=== PATIENT | female | born 1955 | race Caucasian/White ===

== ENCOUNTER 2020-03-13 18:50 | Emergency (ER) | payer MEDICARE ==
--- NOTE | 2020-03-13 19:29 | CR ---
Chest: Portable view of the chest was obtained. Comparison: No prior chest imaging. Heart is slightly enlarged but felt to be accentuated from portable technique. Tortuous thoracic aorta is seen. Lungs are clear with no acute parenchymal change. Bony structures are grossly intact. Impression: 1. Nothing acute is appreciated on portable chest x-ray. Diagnostic code #1 This report was dictated in MDT
--- NOTE | 2020-03-13 21:23 | EDM.PDOC ---
ED HPI GENERAL MEDICAL PROBLEM - General Chief Complaint: Chest Pain Stated Complaint: SOB CHEST PAIN Time Seen by Provider: 03/13/20 18:55 Source of Information: Reports: Patient History Limitations: Reports: No Limitations - History of Present Illness INITIAL COMMENTS - FREE TEXT/NARRATIVE: PENNY NOTE -- Pt presents for c/o chest pain and shortness of breath starting 30 minutes prior to presentation. Pt reports that initial pain was 8-9/10. Pain at this time is a 2-3/10. [ End ] The patient says she had an onset of low back pain when she was sitting quietly. She said the pain more or less migrated to her chest area. She says that with shortness of breath but it seemed to be related to musculoskeletal pain in her chest. She described the pain is having a "cramping" quality. There is no sweating. In fact she said the sensation was resolved when she stood up. Apparently there was no interference with activity due to this symptom. She has not taken any medication prior to arrival or any other measure in an effort to moderate symptoms. In fact her pain if present is always pretty mild on presentation. At the time of my exam she has no pain and feels quite comfortable. Risk factors include hypertension. Patient says in 2012 she had a hypertensive emergency with acute renal failure. She says she was thought to have had a stroke at that time but she does not recall any weakness or any other symptoms that may suggest she actually had a stroke. About 3 years ago she was admitted to [facility] overnight after coming in with a presentation similar to her presentation today. Left Chest Pain Score (Numeric/FACES): 2 - Related Data Allergies Allergy/AdvReac Type Severity Reaction Status Date / Time No Known Allergies Allergy Verified 03/13/20 19:02 Home Meds: Home Meds Acetaminophen 325 mg PO Q6H PRN 03/13/20 [History] Aspirin [Ecotrin EC] 81 mg PO DAILY 03/13/20 [History] Docusate Sodium/Sennosides [Senna Plus] 1 each PO DAILY PRN 03/13/20 [History] Furosemide 20 mg PO DAILY 03/13/20 [History] Gabapentin [Neurontin] 300 mg PO BEDTIME 03/13/20 [History] Labetalol [Normodyne] 600 mg PO BID 03/13/20 [History] Magnesium Chloride 128 mg PO DAILY 03/13/20 [History] Potassium Chloride 20 meq PO DAILY 03/13/20 [History] Sertraline HCl 50 mg PO DAILY 03/13/20 [History] Tacrolimus 0.5 mg PO ACBREAKFAST 03/13/20 [History] Tacrolimus 1 mg PO BEDTIME 03/13/20 [History] amLODIPine Besylate [Amlodipine Besylate] 10 mg PO BEDTIME 03/13/20 [History] atorvaSTATin Calcium [Atorvastatin Calcium] 20 mg PO BEDTIME 03/13/20 [History] diphenhydrAMINE [Benadryl] 25 mg PO BEDTIME PRN 03/13/20 [History] mycophenolate mofetiL [Mycophenolate Mofetil] 1,000 mg PO BID 03/13/20 [History] predniSONE [Prednisone] 5 mg PO DAILY 03/13/20 [History] Past Medical History HEENT History: Reports: Impaired Vision Cardiovascular History: Reports: Hypertension Genitourinary History: Reports: Other (See Below) Other Genitourinary History: Kidney transplant 2014 Neurological History: Reports: CVA, Other (See Below) Other Neuro History: Thrombosis of legs Social & Family History - Family History Family Medical History: Noncontributory - Tobacco Use Smoking Status *Q: Former Smoker (Quit in 1993) Used Tobacco, but Quit: Yes Month/Year Tobacco Last Used: 02/1995 - Caffeine Use Caffeine Use: Reports: Tea - Recreational Drug Use Recreational Drug Use: No ED ROS GENERAL - Review of Systems Review Of Systems: Comprehensive ROS is negative, except as noted in HPI. ED EXAM, GENERAL - Physical Exam Exam: See Below Exam Limited By: No Limitations General Appearance: Alert, WD/WN, No Apparent Distress Eye Exam: Bilateral Eye: EOMI, PERRL Ears: Normal External Exam Nose: Normal Inspection Throat/Mouth: Normal Inspection, Normal Lips, Normal Voice Head: Atraumatic, Normocephalic Neck: Normal Inspection, Supple Respiratory/Chest: No Respiratory Distress, Lungs Clear, Normal Breath Sounds Cardiovascular: Regular Rate, Rhythm GI/Abdominal: Soft, Non-Tender Back Exam: Normal Inspection. No: CVA Tenderness (L), CVA Tenderness (R) Extremities: Normal Inspection, Non-Tender, No Pedal Edema Neurological: Alert, Oriented, Normal Cognition, No Motor/Sensory Deficits Psychiatric: Normal Affect, Normal Mood Skin Exam: Warm, Dry Course - Vital Signs Last Recorded V/S: Last Vital Signs Temp 36.1 C 03/13/20 18:57 Pulse 69 03/13/20 18:57 Resp 22 H 03/13/20 18:57 BP 175/95 H 03/13/20 18:57 Pulse Ox 95 03/13/20 18:57 - Orders/Labs/Meds Orders: Active Orders 24 hr Category Date Time Status EKG 12 Lead [EKG Documentation Completion] [RC] ROUTINE Care 03/13/20 22:30 Active EKG Documentation Completion [RC] STAT Care 03/13/20 19:04 Active UA RFX ARIAN AND CULT IF INDIC [URIN] Stat Lab 03/13/20 19:04 Ordered Labs: Laboratory Tests 03/13/20 03/13/20 03/13/20 Range/Units 19:25 19:25 19:25 WBC 10.53 H (3.98-10.04) K/mm3 RBC 5.00 (3.98-5.22) M/mm3 Hgb 13.0 (11.2-15.7) gm/dl Hct 42.3 (34.1-44.9) % MCV 84.6 (79.4-94.8) fl MCH 26.0 (25.6-32.2) pg MCHC 30.7 L (32.2-35.5) g/dl RDW Std Deviation 44.0 (36.4-46.3) fL Plt Count 231 (182-369) K/mm3 MPV 10.6 (9.4-12.3) fl Neutrophils % (Manual) 92 H (40-60) % Band Neutrophils % 0 (0-10) % Lymphocytes % (Manual) 6 L (20-40) % Atypical Lymphs % 0 % Monocytes % (Manual) 2 (2-10) % Eosinophils % (Manual) 0 L (0.7-5.8) % Basophils % (Manual) 0 L (0.1-1.2) Platelet Estimate Adequate RBC Morph Comment Normal PT 11.0 (9.7-12.0) SECONDS INR 1.01 APTT 21 L (22-31) SECONDS Sodium 142 (136-145) mEq/L Potassium 4.2 (3.5-5.1) mEq/L Chloride 106 (98-107) mEq/L Carbon Dioxide 21 (21-32) mEq/L Anion Gap 19.2 H (5-15) BUN 16 (7-18) mg/dL Creatinine 1.2 H (0.55-1.02) mg/dL Est Cr Clr Drug Dosing 37.95 mL/min Estimated GFR (MDRD) 45 (>60) mL/min BUN/Creatinine Ratio 13.3 L (14-18) Glucose 122 H (80-115) mg/dL Calcium 9.0 (8.5-10.1) mg/dL Total Bilirubin 0.5 (0.2-1.0) mg/dL AST 9 L (15-37) U/L ALT 14 (14-59) U/L Alkaline Phosphatase 75 (46-116) U/L Troponin I < 0.017 (0.00-0.056) ng/mL Total Protein 7.0 (6.4-8.2) g/dl Albumin 4.3 (3.4-5.0) g/dl Globulin 2.7 gm/dL Albumin/Globulin Ratio 1.6 (1-2) 03/13/20 Range/Units 22:15 WBC (3.98-10.04) K/mm3 RBC (3.98-5.22) M/mm3 Hgb (11.2-15.7) gm/dl Hct (34.1-44.9) % MCV (79.4-94.8) fl MCH (25.6-32.2) pg MCHC (32.2-35.5) g/dl RDW Std Deviation (36.4-46.3) fL Plt Count (182-369) K/mm3 MPV (9.4-12.3) fl Neutrophils % (Manual) (40-60) % Band Neutrophils % (0-10) % Lymphocytes % (Manual) (20-40) % Atypical Lymphs % % Monocytes % (Manual) (2-10) % Eosinophils % (Manual) (0.7-5.8) % Basophils % (Manual) (0.1-1.2) Platelet Estimate RBC Morph Comment PT (9.7-12.0) SECONDS INR APTT (22-31) SECONDS Sodium (136-145) mEq/L Potassium (3.5-5.1) mEq/L Chloride (98-107) mEq/L Carbon Dioxide (21-32) mEq/L Anion Gap (5-15) BUN (7-18) mg/dL Creatinine (0.55-1.02) mg/dL Est Cr Clr Drug Dosing mL/min Estimated GFR (MDRD) (>60) mL/min BUN/Creatinine Ratio (14-18) Glucose (80-115) mg/dL Calcium (8.5-10.1) mg/dL Total Bilirubin (0.2-1.0) mg/dL AST (15-37) U/L ALT (14-59) U/L Alkaline Phosphatase (46-116) U/L Troponin I < 0.017 (0.00-0.056) ng/mL Total Protein (6.4-8.2) g/dl Albumin (3.4-5.0) g/dl Globulin gm/dL Albumin/Globulin Ratio (1-2) - Re-Assessments/Exams Free Text/Narrative Re-Assessment/Exam: 03/13/20 23:07 On the basis of the history presentation and findings it would appear that the patient does not have an acute cardiological issue at this time. She was held for 3 hours for repeat troponin and EKG. EKG does show some nonspecific T wave changes but compared with a tracing done at [facility] in 2016 there is no significant difference. Troponin was low and equivalent to times checked. Chest x-ray negative. Discussed fully with patient and family member at bedside. See instructions below. Departure - Departure Time of Disposition: 23:08 Disposition: Home, Self-Care 01 Condition: Good Clinical Impression: Atypical chest pain - Discharge Information *PRESCRIPTION DRUG MONITORING PROGRAM REVIEWED*: Not Applicable *COPY OF PRESCRIPTION DRUG MONITORING REPORT IN PATIENT SHASHI: Not Applicable Referrals: PCP,None [Primary Care Provider] - Forms: ED Department Discharge Additional Instructions: You have been seen for an episode that could possibly represent a problem with your heart. You have been evaluated fully and there appears to be no acute problem at this time. The sensitive cardiac enzyme troponin was repeated after 3 hours and both times this value was not at all suggestive of damage to the heart. EKG is comparable to one done in 2016 and was done twice here without any change. Tomorrow morning please call your specialist who is been taking care of you. If there is any subsequent issue including chest pain especially associated with shortness of breath sweating or inability to remain active, passing out or almost passing out, return to ER immediately and do not hesitate to call EMS for that. Sepsis Event Note (ED) - Evaluation Sepsis Screening Result: No Definite Risk - Focused Exam Vital Signs: Vital Signs Temp Pulse Resp BP Pulse Ox 03/13/20 18:57 36.1 C 69 22 H 175/95 H 95 - My Orders Last 24 Hours: My Active Orders 03/13/20 19:04 EKG Documentation Completion [RC] STAT UA RFX ARIAN AND CULT IF INDIC [URIN] Stat 03/13/20 22:30 EKG 12 Lead [EKG Documentation Completion] [RC] ROUTINE - Assessment/Plan Last 24 Hours: My Active Orders 03/13/20 19:04 EKG Documentation Completion [RC] STAT UA RFX ARIAN AND CULT IF INDIC [URIN] Stat 03/13/20 22:30 EKG 12 Lead [EKG Documentation Completion] [RC] ROUTINE
== END 2020-03-13 23:21 | disposition home or self-care (01) ==
LOC: JD.ED 18:50
DX: R07.89 Other chest pain (principal); I10 Essential (primary) hypertension; Z86.73 Personal history of transient ischemic attack (TIA), and cerebral infarction without residual deficits; Z79.82 Long term (current) use of aspirin; Z79.899 Other long term (current) drug therapy; Z87.891 Personal history of nicotine dependence
CPT/HCPCS: 36415; 71045; 71045-26; 80053; 84484; 85007; 85027; 85610; 85730; 93005; 93010; 99284; 99285-25

== ENCOUNTER 2020-11-08 17:25 | Emergency (ER) | payer OTHER, MEDICAID ==
--- NOTE | 2020-11-08 17:33 | EDM.PDOC ---
ED HPI GENERAL MEDICAL PROBLEM - General Chief Complaint: Cardiovascular Problem Stated Complaint: [facility] Time Seen by Provider: 11/08/20 17:33 Source of Information: Reports: Patient History Limitations: Reports: No Limitations - History of Present Illness INITIAL COMMENTS - FREE TEXT/NARRATIVE: 65-year-old female who is a resident of I believe [facility]. She returned to the ED at the request of her primary care physician as she had labs drawn after dialysis run this afternoon. She has been back to the long-term for about 45 minutes to an hour. Labs returned indicating a potassium of 1.0 or less. This is highly unlikely as this is usually incompatible with life. Her potassium before dialysis was apparently around 6.5. Patient does not verbalize much at all. She denies any complaints other than being fatigued which she usually is after dialysis. Patient has a history of a hypertensive emergency in 2012 with acute renal failure as a result of this. She was on dialysis until she received a kidney transplant in 2014 but subsequently rejected this organ. This is the reason that she is on dialysis once again for the last 2 years. She says she was thought to have had a stroke at that time but she does not recall any weakness or any other symptoms that suggested an actual stroke or deficit neurologically. Admitted to [facility] approximately 3-1/2 years ago to chest pain and a cardiac rule out. She believes that she has been on dialysis for about 7 years. I suspect the patient probably did have a stroke as she is currently getting all of her medications through the G-tube. She is therefore restrictions on ability to swallow. Patient is a type II diabetic controlled with insulin. Levemir 12 units once d aily and Humalog insulin on a as needed basis per sliding scale. Onset: Today Onset Date: 11/08/20 Onset Time: 17:00 (Labs drawn after dialysis run today and reported out after the patient had been discharged back to the long-term suggested her potassium was lower than 1.0. He thus returns to the ED for further evaluation in this regard or recheck on potassium level) Duration: Hour(s): Location: Reports: Other (Reportedly had a serum potassium level of only 1.0 which was drawn after her dialysis run of 4 hours this afternoon. She had already returned back to [facility] and thus was brought back to the ER for eval further evaluation and confirmation that she was not suffering severe hypokalemia.) Quality: Reports: Other (Turn for hypokalemia post dialysis run.) Severity: Severe (Portably severe hypokalemia at less than 1.0.) Improves with: Reports: Other (Avalos is alert and answers some questions. She appears very fatigued at this time.) Context: Reports: Other (Patient is fatigued and tired and). Denies: Activity, Exercise, Lifting, Sick Contact, Trauma Associated Symptoms: Reports: Loss of Appetite, Malaise, Weakness. Denies: Chest Pain ( answers a few questions but then falls back asleep.), Cough, cough w sputum, Diaphoresis, Fever/Chills, Headaches, Nausea/Vomiting, Rash, Seizure, Shortness of Breath, Syncope Treatments PROPOSAL REVIEW ANALYST: Reports: Other (see below) (Only her current medications.) - Related Data Allergies Allergy/AdvReac Type Severity Reaction Status Date / Time citric acid Allergy Cannot Verified 11/08/20 17:41 Remember Home Meds: Home Meds Acetaminophen 17.5 ml GTUBE BID 11/08/20 [History] Amiodarone [Cordarone] 200 mg GTUBE BID 11/08/20 [History] B Complex W-C No.20/Folic Acid [Mynephrocaps Softgel] 1 mg GTUBE DAILY 11/08/20 [History] FLUoxetine [PROzac] 10 mg GTUBE DAILY 11/08/20 [History] Insulin Aspart [NovoLOG] 1 injection SUBCUT QID 11/08/20 [History] Insulin Detemir [Levemir Flextouch] 12 units SUBCUT DAILY 11/08/20 [History] LORazepam [Ativan] 0.5 mg GTUBE BID 11/08/20 [History] Lactose-Reduced Food/Fiber [Isosource 1.5 Wojciech Tube Feed] 55 ml GTUBE ASDIRECTED 11/08/20 [History] Loperamide HCl [Imodium A-D] 1 mg GTUBE BID 11/08/20 [History] Losartan [Cozaar] 50 mg GTUBE QPM 11/08/20 [History] Pantoprazole Sodium [Protonix] 40 mg GTUBE DAILY 11/08/20 [History] Thiamine [Vitamin B-1] 100 mg GTUBE DAILY 11/08/20 [History] atorvaSTATin [Lipitor] 10 mg GTUBE DAILY 11/08/20 [History] dimenhyDRINATE [Dramamine] 50 mg GTUBE Q4HR PRN 11/08/20 [History] levETIRAcetam [Keppra] 1,000 mg GTUBE DAILY 11/08/20 [History] levETIRAcetam [Keppra] 500 mg GTUBE MOWEFR 11/08/20 [History] risperiDONE [Risperdal] 0.5 mg GTUBE QPM 11/08/20 [History] Past Medical History HEENT History: Reports: Impaired Vision Cardiovascular History: Reports: Hypertension Genitourinary History: Reports: Other (See Below) Other Genitourinary History: 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 Apparently severe renal failure occurred after an acute hypertensive event in 2012. Kidneys have failed and she is subsequently back on hemodialysis for the last 2 years. Neurological History: Reports: CVA, Seizure (She is on Keppra 1500 mg/day.), Other (See Below) (Mild dementia. Using risperidone at bedtime to help sleep) Other Neuro History: Thrombosis of legs Endocrine/Metabolic History: Reports: Diabetes, Type II (Takes insulin for her diabetes control. Currently on Levemir 12 units subcu daily and 1 to 2 units of regular insulin with meals depending on carb intake.) Social & Family History - Family History Family Medical History: No Pertinent Family History - Caffeine Use Caffeine Use: Reports: Tea - Living Situation & Occupation Living situation: Reports: , Extended Care Facility (Currently a resident resident of [facility].) Occupation: Disabled ED ROS GENERAL - Review of Systems Review Of Systems: See Below Constitutional: Reports: Malaise, Weakness, Fatigue, Decreased Appetite. Denies: Fever, Chills HEENT: Reports: No Symptoms Respiratory: Reports: Shortness of Breath, Cough. Denies: Wheezing, Pleuritic Chest Pain (Occasionally.) Cardiovascular: Reports: Blood Pressure Problem, Dyspnea on Exertion (On occasion.), Edema (Lower extremities), Lightheadedness. Denies: Chest Pain (Unproductive), Claudication (Severe hypertensive problems.), Orthopnea Endocrine: Reports: Fatigue GI/Abdominal: Reports: Constipation, Nausea, Other (Patient is fed via G-tube. All of her medications are administered through G-tube as well.). Denies: Vomiting (Violetta had nausea often associate with dialysis run.) : Reports: Other (Does not make any urine anymore. Patient is a hemodialysis patient for the last 2 years. Dialysis usually Wednesday and Wednesday.) Musculoskeletal: Reports: Back Pain, Joint Pain (Knees hips neck at times.) Skin: Reports: No Symptoms Neurological: Reports: Confusion (Reported transient confusion), Dizziness, Seizure (Known seizure disorder. Is on Keppra 1500 mg daily.) Psychiatric: Reports: Agitation, Anxiety, Other Hematologic/Lymphatic: Reports: No Symptoms (Apparently showing early signs of dementia.) Immunologic: Reports: No Symptoms ED EXAM, GENERAL - Physical Exam Exam: See Below Exam Limited By: No Limitations General Appearance: Alert, WD/WN, No Apparent Distress, Other (Patient appears very sleepy. She will answer a few Questions and then falls back asleep. Temperature was 36.4. Heart rate 81 and sinus. Respiratory is 13 with O2 sats of 97% room air. BP 153/69.) Eye Exam: Bilateral Eye: Normal Inspection, PERRL (Patient does have mild blepharal pallor. No scleral icterus.) Throat/Mouth: Other (Mouth is quite dry. Lips are mildly chapped. Dried secretions in her oral cavity and teeth are in very poor condition.) Head: Atraumatic, Normocephalic, Other Neck: Normal Inspection (No outward signs of any head or facial trauma.), Supple, Non-Tender, Full Range of Motion, Other (Hours right upper anterior neck compared with previous central venous line insertions). No: Lymphadenopathy (L), Lymphadenopathy (R) Respiratory/Chest: No Respiratory Distress, Lungs Clear, Decreased Breath Sounds (Creased breath sounds in the posterior lung gomez presumably due to not able to take a full deep breath as she is pretty sleepy.). No: Rales, Rhonchi, Wheezing Cardiovascular: Regular Rate, Rhythm, No Edema, No Gallop, No JVD, No Murmur, No Rub. No: Normal Peripheral Pulses Peripheral Pulses: 2+: Carotid (L), Carotid (R), Posterior Tibial (L), Posterior Tibial (R), Dorsalis Pedis (L), Dorsalis Pedis (R) GI/Abdominal: Normal Bowel Sounds, Soft, Non-Tender, No Organomegaly, Other (PEG tube left upper quadrant of the abdomen. At this time there is still Jevity or feeding secretions within the tube and it did not get irrigated well after feeding today. It will be flushed at this time so as not to clog up the tube.) Back Exam: Other (Not examined) Extremities: Other (The fistula is in the left lower medial arm. There is no palpable thrill. She does have his have a auscultatory bruit. Patient no longer walks. Both feet are in Ramsey's to protector heels from breaking down.) Neurological: Alert, Oriented, CN II-XII Intact, Normal Cognition, Other (And answers all questions to the best of her ability. On the third time I went back to the room she was more alert and able to answer more questions than on initial assessment.) Psychiatric: Normal Affect, Normal Mood Skin Exam: Warm, Dry, Intact, Normal Color, No Rash Course - Vital Signs Last Recorded V/S: Last Vital Signs Temp 36.4 C 11/08/20 17:29 Pulse 81 11/08/20 17:29 Resp 13 11/08/20 17:29 BP 153/69 H 11/08/20 17:29 Pulse Ox 82 L 11/08/20 17:29 - Orders/Labs/Meds Orders: Active Orders 24 hr Category Date Time Status CORONAVIRUS COVID-19 YESSENIA [MOLEC] Stat Lab 11/08/20 18:47 Stop Req Labs: Laboratory Tests 11/08/20 Range/Units 18:30 Sodium 142 (136-145) mEq/L Potassium 4.3 D (3.5-5.1) mEq/L Chloride 100 (98-107) mEq/L Carbon Dioxide 31 D (21-32) mEq/L Anion Gap 15.3 H (5-15) BUN 22 H (7-18) mg/dL Creatinine 1.9 H (0.55-1.02) mg/dL Est Cr Clr Drug Dosing 23.66 mL/min Estimated GFR (MDRD) 27 (>60) mL/min BUN/Creatinine Ratio 11.6 L (14-18) Glucose 58 L (80-115) mg/dL Calcium 9.7 (8.5-10.1) mg/dL Total Bilirubin 0.3 (0.2-1.0) mg/dL AST 26 (15-37) U/L ALT 18 (14-59) U/L Alkaline Phosphatase 85 (46-116) U/L Total Protein 6.5 (6.4-8.2) g/dl Albumin 2.1 L (3.4-5.0) g/dl Globulin 4.4 gm/dL Albumin/Globulin Ratio 0.5 L (1-2) Meds: Medications Discontinued Medications Generic Name Dose Route Start Last Admin Trade Name Jim PRN Reason Stop Dose Admin Dextrose 15 gm 11/08/20 19:37 Glutose 15 PO 11/08/20 19:38 ONETIME ONE - Radiology Interpretation Free Text/Narrative:: 65-year-old female presents to the ED at the request of her ice cream mixer. Patient is a hemodialysis patient Wednesdays and Fridays weekly for the last 2-1/2 years. Initial renal failure occurred in 2012 from hypertensive crisis or malignancy. She was then able to get a kidney transplant in 2014 but apparently her body rejected it in 2017. She has been back on dialysis since. Post dialysis run today she had labs drawn and had of course been discharged back to [facility] where she resides. The post dialysis lab work revealed a potassium of less than 1.0. Thus she was advised to return back to the ED for repeat labs to ensure that she was not severely hypokalemic. It is unlikely as a serum potassium of less than 1.0 would be considered fatal. - Re-Assessments/Exams Free Text/Narrative Re-Assessment/Exam: 11/08/20 18:51White blood cell count is 10.53 with 92% neutrophils and no bands cells reported. Hemoglobin 13.0 with hematocrit of 42.3. Platelet count 231,000. PT was 11.0 with an INR of 1.01. PTT was 21. Sodium 142 with a potassium of 4.2. Chloride 106 with a bicarb of 21. Anion gap is 19.2. BUN is 16 with a creatinine of 1.2 glucose 122. Troponin I was less than 0.017. 11/08/20 19:37 Chemistry shows a sodium of 142 and a potassium of 4.3. Chloride 100 with a bicarb of 31 anion gap is 15.3 BUN is 22 with a creatinine of 1.9 and GFR of 27. Glucose is low at 58 patient will be given some glucose at this time. Calcium is 9.7 liver function normal. Total protein 6.5 with a low albumin fraction of 2.1. Plan she will be discharged to home once her blood sugar is stabilized. Departure - Departure Time of Disposition: 19:42 Disposition: Home, Self-Care 01 Reason for Transfer *Q: Other Condition: Fair Clinical Impression: Hemodialysis patient, Hypokalemia, Hypoglycemia Referrals: Franklin Mancia MD [Primary Care Provider] - Forms: ED Department Discharge Additional Instructions: Evaluation in the emergency department the request of your ice cream mixer after reported blood potassium level of less than 1.0 post dialysis run today. This was felt to be highly unlikely as a serum potassium level this low is usually incompatible with life. In fact your serum potassium level in the emergency room was 4.3 which is normal. The only other outer abnormality was slightly low blood sugar at 58. You take insulin for diabetes and sugar has dipped a bit too low while in the emergency room. You were treated with oral glucose and fluids containing sugar. Blood sugar to be checked at the long-term in 1 hour and in 2 hours time to make sure that stabilized. Sepsis Event Note (ED) - Evaluation Sepsis Screening Result: No Definite Risk - Focused Exam Vital Signs: Vital Signs Temp Pulse Resp BP Pulse Ox 11/08/20 17:29 36.4 C 81 13 153/69 H 82 L - My Orders Last 24 Hours: My Active Orders 11/08/20 18:47 CORONAVIRUS COVID-19 YESSENIA [MOLEC] Stat - Assessment/Plan Last 24 Hours: My Active Orders 11/08/20 18:47 CORONAVIRUS COVID-19 YESSENIA [MOLEC] Stat
[2020-11-08] MEDS ORDERED: Glucose Gel 15 GM in 37.5 GM Tube PO ONE (19:37)
== END 2020-11-08 20:59 | disposition home or self-care (01) ==
LOC: JD.ED 17:25
DX: E11.649 Type 2 diabetes mellitus with hypoglycemia without coma (principal); E87.6 Hypokalemia; R56.9 Unspecified convulsions; I10 Essential (primary) hypertension; Z79.4 Long term (current) use of insulin; Z79.899 Other long term (current) drug therapy; Z91.048 Other nonmedicinal substance allergy status; Z86.73 Personal history of transient ischemic attack (TIA), and cerebral infarction without residual deficits; Z99.2 Dependence on renal dialysis; Z20.828 Contact with and (suspected) exposure to other viral communicable diseases
CPT/HCPCS: 36415; 80053; 82962; 87635; 99283; A9270; 99284; U0002

== ENCOUNTER 2020-12-02 10:18 | Emergency (ER) | payer MEDICARE, MEDICAID ==
--- NOTE | 2020-12-02 10:59 | EDM.PDOC ---
ED HPI GENERAL MEDICAL PROBLEM - General Chief Complaint: Respiratory Problem Stated Complaint: [facility] Time Seen by Provider: 12/02/20 10:50 - History of Present Illness INITIAL COMMENTS - FREE TEXT/NARRATIVE: 65-year-old female brought in from halfway with concerns of being fluid overloaded. Patient was awoken with a lot of moisture on the bed thought to be either sweat or had fluid draining from her edema. Patient is on chronic hemodialysis for end-stage renal failure. Patient is due to have dialysis today however she was sent to the emergency room. Patient is unable to provide any more history and the halfway did not provide any more history. - Related Data Allergies Allergy/AdvReac Type Severity Reaction Status Date / Time citric acid Allergy Cannot Verified 11/08/20 17:41 Remember Home Meds: Home Meds Acetaminophen 17.5 ml GTUBE BID 11/08/20 [History] Amiodarone [Cordarone] 200 mg GTUBE BID 11/08/20 [History] B Complex W-C No.20/Folic Acid [Mynephrocaps Softgel] 1 mg GTUBE DAILY 11/08/20 [History] FLUoxetine [PROzac] 10 mg GTUBE 0600 11/08/20 [History] Insulin Aspart [NovoLOG] 1 injection SUBCUT QID 11/08/20 [History] Insulin Detemir [Levemir Flextouch] 8 units SQ 1800 11/08/20 [History] LORazepam [Ativan] 0.5 mg GTUBE BID 11/08/20 [History] Lactose-Reduced Food/Fiber [Isosource 1.5 Wojciech Tube Feed] 55 ml GTUBE ASDIRECTED 11/08/20 [History] Loperamide HCl [Imodium A-D] 1 mg GTUBE BID 11/08/20 [History] Losartan [Cozaar] 50 mg GTUBE QPM 11/08/20 [History] Pantoprazole Sodium [Protonix] 40 mg GTUBE 0700 11/08/20 [History] Thiamine [Vitamin B-1] 100 mg GTUBE 0600 11/08/20 [History] atorvaSTATin [Lipitor] 10 mg GTUBE 2100 11/08/20 [History] dimenhyDRINATE [Dramamine] 50 mg GTUBE Q4HR PRN 11/08/20 [History] levETIRAcetam [Keppra] 1,000 mg GTUBE 0600 11/08/20 [History] levETIRAcetam [Keppra] 500 mg GTUBE MOWEFR 11/08/20 [History] risperiDONE [Risperdal] 0.5 mg GTUBE QPM 11/08/20 [History] B Complex W-C No.20/Folic Acid [Mynephrocaps Softgel] 1 mg PO 0700 12/02/20 [History] Past Medical History HEENT History: Reports: Impaired Vision Cardiovascular History: Reports: Hypertension Genitourinary History: Reports: Other (See Below) Other Genitourinary History: 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 Apparently severe renal failure occurred after an acute hypertensive event in 2012. Kidneys have failed and she is subsequently back on hemodialysis for the last 2 years. Neurological History: Reports: CVA, Seizure, Other (See Below) Other Neuro History: Thrombosis of legs Endocrine/Metabolic History: Reports: Diabetes, Type II Social & Family History - Family History Family Medical History: No Pertinent Family History - Tobacco Use Tobacco Use Status *Q: Never Tobacco User - Caffeine Use Caffeine Use: Reports: None - Recreational Drug Use Recreational Drug Use: No - Living Situation & Occupation Living situation: Reports: , Extended Care Facility (Currently a resident resident of [facility].) Occupation: Disabled ED ROS GENERAL - Review of Systems Review Of Systems: Unable To Obtain Reason Not Obtained: Altered mental status she may have received Ativan ED EXAM, GENERAL - Physical Exam Exam: See Below Exam Limited By: Other (Unable to participate in questioning) General Appearance: Obtunded, Other (She is on 10 L of oxygen per nonrebreather pulse ox on admission was 94%) Eye Exam: Bilateral Eye: Other (She will open them but then promptly go back to sleep) Ears: Normal External Exam, Normal Canal, Hearing Grossly Normal, Normal TMs Nose: Normal Inspection, Normal Mucosa, No Blood Throat/Mouth: Normal Inspection, Normal Lips, Normal Gums, Normal Oropharynx, Normal Voice, No Airway Compromise. No: Normal Teeth Head: Atraumatic, Normocephalic Neck: Normal Inspection, Supple, Non-Tender, Full Range of Motion. No: Lymphadenopathy (L), Lymphadenopathy (R) Respiratory/Chest: Crackles (Bibasilar), Other (Suboptimal inspiration) Cardiovascular: Regular Rate, Rhythm, No Murmur (No murmur appreciated), Other (Significant edema) GI/Abdominal: Normal Bowel Sounds, Soft Extremities: Other (Significant edema) Neurological: Other (Minimally responsive I am unclear of what her baseline is) #1 Interpretation EKG Date: 12/02/20 Rhythm: NSR [place]: Normal P-Wave: Present QRS: Other (Intraventricular conduction delay) ST-T: Normal QT: Normal Comparison: NA - No Prior EKG Course - Vital Signs Last Recorded V/S: Last Vital Signs Temp 35.9 C L 12/02/20 16:25 Pulse 50 L 12/02/20 16:25 Resp 14 12/02/20 16:25 BP 139/66 12/02/20 16:25 Pulse Ox 97 12/02/20 16:25 - Orders/Labs/Meds Orders: Active Orders 24 hr Category Date Time Status Insert Balbuena Catheter [Insert Urinary Catheter] [OM.PC] Care 12/02/20 13:20 Ordered Stat CULTURE BLOOD [BC] Stat Lab 12/02/20 12:00 Received CULTURE BLOOD [BC] Stat Lab 12/02/20 12:30 Results CULTURE URINE [RM] Stat Lab 12/02/20 13:27 Results Blood Culture x2 Reflex Set [OM.PC] Stat Oth 12/02/20 11:01 Ordered Labs: Laboratory Tests 12/02/20 12/02/20 12/02/20 Range/Units 10:25 12:00 12:00 WBC (3.98-10.04) K/mm3 RBC (3.98-5.22) M/mm3 Hgb (11.2-15.7) gm/dl Hct (34.1-44.9) % MCV (79.4-94.8) fl MCH (25.6-32.2) pg MCHC (32.2-35.5) g/dl RDW Std Deviation (36.4-46.3) fL Plt Count (182-369) K/mm3 MPV (9.4-12.3) fl Neut % (Auto) (34.0-71.1) % Lymph % (Auto) (19.3-51.7) % [place] % (Auto) (4.7-12.5) % Eos % (Auto) (0.7-5.8) Baso % (Auto) (0.1-1.2) % Neut # (Auto) (1.56-6.13) K/mm3 Lymph # (Auto) (1.18-3.74) K/mm3 [place] # (Auto) (0.24-0.36) K/mm3 Eos # (Auto) (0.04-0.36) K/mm3 Baso # (Auto) (0.01-0.08) K/mm3 Manual Slide Review PT 11.6 (9.7-12.0) SECONDS INR 1.09 APTT 29.9 (21.7-31.4) SECONDS Sodium 135 L (136-145) mEq/L Potassium 8.1 H* D (3.5-5.1) mEq/L Chloride 93 L (98-107) mEq/L Carbon Dioxide 25 (21-32) mEq/L Anion Gap 25.1 H (5-15) BUN 77 H D (7-18) mg/dL Creatinine 3.6 H D (0.55-1.02) mg/dL Est Cr Clr Drug Dosing 13.06 mL/min Estimated GFR (MDRD) 13 (>60) mL/min BUN/Creatinine Ratio 21.4 H (14-18) Glucose 165 H (80-115) mg/dL POC Glucose (80-115) mg/dL Lactic Acid (0.4-2.0) mmol/L Calcium 10.4 H (8.5-10.1) mg/dL Total Bilirubin 0.2 (0.2-1.0) mg/dL AST 21 (15-37) U/L ALT 23 (14-59) U/L Alkaline Phosphatase 159 H (46-116) U/L Troponin I < 0.017 (0.00-0.056) ng/mL Total Protein 7.1 (6.4-8.2) g/dl Albumin 2.6 L (3.4-5.0) g/dl Globulin 4.5 gm/dL Albumin/Globulin Ratio 0.6 L (1-2) Urine Color (Yellow) Urine Appearance (Clear) Urine pH (5.0-8.0) Ur Specific [place] (1.005-1.030) Urine Protein (Negative) Urine Glucose (UA) (Negative) Urine Ketones (Negative) Urine Occult Blood (Negative) Urine Nitrite (Negative) Urine Bilirubin (Negative) Urine Urobilinogen (0.2-1.0) Ur Leukocyte Esterase (Negative) Urine RBC (0-5) /hpf Urine WBC (0-5) /hpf Ur Squamous Epith Cells (0-5) /hpf Urine Bacteria (FEW) /hpf Urine Mucus (FEW) /hpf SARS-CoV-2 RNA (YESSENIA) Negative (NEGATIVE) 12/02/20 12/02/20 12/02/20 Range/Units 12:00 12:00 13:27 WBC 17.06 H (3.98-10.04) K/mm3 RBC 3.78 L (3.98-5.22) M/mm3 Hgb 10.6 L D (11.2-15.7) gm/dl Hct 37.0 (34.1-44.9) % MCV 97.9 H D (79.4-94.8) fl MCH 28.0 (25.6-32.2) pg MCHC 28.6 L (32.2-35.5) g/dl RDW Std Deviation 69.0 H (36.4-46.3) fL Plt Count 277 (182-369) K/mm3 MPV 10.1 (9.4-12.3) fl Neut % (Auto) 90.8 H (34.0-71.1) % Lymph % (Auto) 2.8 L (19.3-51.7) % [place] % (Auto) 4.8 (4.7-12.5) % Eos % (Auto) 0.5 L (0.7-5.8) Baso % (Auto) 0.2 (0.1-1.2) % Neut # (Auto) 15.49 H (1.56-6.13) K/mm3 Lymph # (Auto) 0.48 L (1.18-3.74) K/mm3 [place] # (Auto) 0.82 H (0.24-0.36) K/mm3 Eos # (Auto) 0.08 (0.04-0.36) K/mm3 Baso # (Auto) 0.03 (0.01-0.08) K/mm3 Manual Slide Review Abnormal smear PT (9.7-12.0) SECONDS INR APTT (21.7-31.4) SECONDS Sodium (136-145) mEq/L Potassium (3.5-5.1) mEq/L Chloride (98-107) mEq/L Carbon Dioxide (21-32) mEq/L Anion Gap (5-15) BUN (7-18) mg/dL Creatinine (0.55-1.02) mg/dL Est Cr Clr Drug Dosing mL/min Estimated GFR (MDRD) (>60) mL/min BUN/Creatinine Ratio (14-18) Glucose (80-115) mg/dL POC Glucose (80-115) mg/dL Lactic Acid 1.2 (0.4-2.0) mmol/L Calcium (8.5-10.1) mg/dL Total Bilirubin (0.2-1.0) mg/dL AST (15-37) U/L ALT (14-59) U/L Alkaline Phosphatase (46-116) U/L Troponin I (0.00-0.056) ng/mL Total Protein (6.4-8.2) g/dl Albumin (3.4-5.0) g/dl Globulin gm/dL Albumin/Globulin Ratio (1-2) Urine Color Yellow (Yellow) Urine Appearance Cloudy H (Clear) Urine pH 7.0 (5.0-8.0) Ur Specific [place] 1.020 (1.005-1.030) Urine Protein 3+ H (Negative) Urine Glucose (UA) Negative (Negative) Urine Ketones Negative (Negative) Urine Occult Blood 2+ H (Negative) Urine Nitrite Negative (Negative) Urine Bilirubin Negative (Negative) Urine Urobilinogen 0.2 (0.2-1.0) Ur Leukocyte Esterase 3+ H (Negative) Urine RBC 30-40 H (0-5) /hpf Urine WBC Too numerous to cnt H (0-5) /hpf Ur Squamous Epith Cells Not seen (0-5) /hpf Urine Bacteria Many H (FEW) /hpf Urine Mucus Not seen (FEW) /hpf SARS-CoV-2 RNA (YESSENIA) (NEGATIVE) 12/02/20 12/02/20 Range/Units 14:38 15:48 WBC (3.98-10.04) K/mm3 RBC (3.98-5.22) M/mm3 Hgb (11.2-15.7) gm/dl Hct (34.1-44.9) % MCV (79.4-94.8) fl MCH (25.6-32.2) pg MCHC (32.2-35.5) g/dl RDW Std Deviation (36.4-46.3) fL Plt Count (182-369) K/mm3 MPV (9.4-12.3) fl Neut % (Auto) (34.0-71.1) % Lymph % (Auto) (19.3-51.7) % [place] % (Auto) (4.7-12.5) % Eos % (Auto) (0.7-5.8) Baso % (Auto) (0.1-1.2) % Neut # (Auto) (1.56-6.13) K/mm3 Lymph # (Auto) (1.18-3.74) K/mm3 [place] # (Auto) (0.24-0.36) K/mm3 Eos # (Auto) (0.04-0.36) K/mm3 Baso # (Auto) (0.01-0.08) K/mm3 Manual Slide Review PT (9.7-12.0) SECONDS INR APTT (21.7-31.4) SECONDS Sodium (136-145) mEq/L Potassium (3.5-5.1) mEq/L Chloride (98-107) mEq/L Carbon Dioxide (21-32) mEq/L Anion Gap (5-15) BUN (7-18) mg/dL Creatinine (0.55-1.02) mg/dL Est Cr Clr Drug Dosing mL/min Estimated GFR (MDRD) (>60) mL/min BUN/Creatinine Ratio (14-18) Glucose (80-115) mg/dL POC Glucose 226 H 189 H (80-115) mg/dL Lactic Acid (0.4-2.0) mmol/L Calcium (8.5-10.1) mg/dL Total Bilirubin (0.2-1.0) mg/dL AST (15-37) U/L ALT (14-59) U/L Alkaline Phosphatase (46-116) U/L Troponin I (0.00-0.056) ng/mL Total Protein (6.4-8.2) g/dl Albumin (3.4-5.0) g/dl Globulin gm/dL Albumin/Globulin Ratio (1-2) Urine Color (Yellow) Urine Appearance (Clear) Urine pH (5.0-8.0) Ur Specific [place] (1.005-1.030) Urine Protein (Negative) Urine Glucose (UA) (Negative) Urine Ketones (Negative) Urine Occult Blood (Negative) Urine Nitrite (Negative) Urine Bilirubin (Negative) Urine Urobilinogen (0.2-1.0) Ur Leukocyte Esterase (Negative) Urine RBC (0-5) /hpf Urine WBC (0-5) /hpf Ur Squamous Epith Cells (0-5) /hpf Urine Bacteria (FEW) /hpf Urine Mucus (FEW) /hpf SARS-CoV-2 RNA (YESSENIA) (NEGATIVE) Meds: Medications Discontinued Medications Generic Name Dose Route Start Last Admin Trade Name Freq PRN Reason Stop Dose Admin Calcium Gluconate 1 gm 12/02/20 13:54 12/02/20 14:00 Calcium Gluconate IVPUSH 12/02/20 13:55 1 gm ONETIME ONE Administration Dextrose/Water 50 ml 12/02/20 13:55 12/02/20 14:18 Dextrose 50% In Water IVPUSH 12/02/20 13:56 50 ml ONETIME ONE Administration Ceftriaxone Sodium 1 gm/ 100 mls @ 200 mls/hr 12/02/20 12:45 12/02/20 12:53 Sodium Chloride IV 200 mls/hr Q24H EDWARD Administration Dextrose/Water 500 mls @ 50 mls/hr 12/02/20 14:00 12/02/20 14:23 Dextrose 10% In Water IV 50 mls/hr ASDIRECTED EDWARD Administration Insulin Human Regular 10 unit 12/02/20 13:55 12/02/20 14:14 Humulin R IV 12/02/20 13:56 10 unit ONETIME ONE Administration - Re-Assessments/Exams Free Text/Narrative Re-Assessment/Exam: 12/02/20 12:09 Patient is still obtunded blood work is pending not all of its been obtained they are working with this. 12/02/20 14:13 Did get the blood work back and is quite alarming for potassium of 8.1. White count is elevated 17,000. This was expected with her pneumonia seen on chest she is got multiple laboratory anomalies please refer to the lab section. The case was discussed with Dr. Knowles her lab director at [facility] in [place] who agrees the patient needs to get over there for emergent dialysis. He also agrees with the 10 units of regular insulin 50 mL of 50% dextrose and starting her on D10 50 cc an hour with frequent Accu-Cheks patient also received 1000 mg of calcium gluconate. The patient will be admitted by Dr. Jeronimo's service she accepted care at 1406. However we will be delayed an hour or so before we can send the patient because of bed availability at [facility]. The patient should go straight to dialysis. Departure - Departure Time of Disposition: 14:02 Disposition: DC/Tfer to [facility] 02 Clinical Impression: End stage renal failure on dialysis, Pneumonia, Hyperkalemia - Discharge Information Referrals: Franklin Mancia MD [Primary Care Provider] - Forms: ED Department Discharge Sepsis Event Note (ED) - Evaluation Sepsis Screening Result: No Definite Risk - My Orders Last 24 Hours: My Active Orders 12/02/20 11:01 Blood Culture x2 Reflex Set [OM.PC] Stat 12/02/20 12:00 CULTURE BLOOD [BC] Stat 12/02/20 12:30 CULTURE BLOOD [BC] Stat 12/02/20 13:20 Insert Balbuena Catheter [Insert Urinary Catheter] [OM.PC] Stat 12/02/20 13:27 CULTURE URINE [RM] Stat - Assessment/Plan Last 24 Hours: My Active Orders 12/02/20 11:01 Blood Culture x2 Reflex Set [OM.PC] Stat 12/02/20 12:00 CULTURE BLOOD [BC] Stat 12/02/20 12:30 CULTURE BLOOD [BC] Stat 12/02/20 13:20 Insert Balbuena Catheter [Insert Urinary Catheter] [OM.PC] Stat 12/02/20 13:27 CULTURE URINE [RM] Stat
--- NOTE | 2020-12-02 11:49 | CT ---
Head CT Technique: Multiple axial sections through the brain were obtained. Intravenous contrast was not utilized. Reconstructed coronal and sagittal images were obtained. Comparison: No previous intracranial imaging is available. Findings: Ventricles along with basal cisterns and sulci the over convexities are moderately prominent. Mild areas of decreased density are seen within the periventricular white matter compatible with small vessel ischemic demyelination change. Small area of focal low density is noted within the left frontal region compatible with minimal old infarct. Old lacunar infarct is noted within the posterior right basal ganglia. There is a small calcification being seen off the interhemispheric falx anteriorly which most likely represents a small degenerated meningioma measuring about 7 mm. No evidence of intracranial hemorrhage. No midline shift or mass-effect is seen. Bone window settings were reviewed. Visualized mastoid sinuses are clear. There is mild mucosal thickening within the right side of the sphenoid sinus which is most likely due to mild chronic sinusitis. Impression: 1. Senescent change as noted above. 2. Slight mucosal thickening within the right side of the sphenoid sinus most likely chronic. 3. No acute intracranial abnormality is appreciated. Diagnostic code #2
--- NOTE | 2020-12-02 11:51 | CR ---
Chest: Portable view of the chest was obtained. Comparison: Prior chest x-ray of 03/13/20. Right-sided infusion catheter is seen. Heart is enlarged. Tortuous thoracic aorta is noted. Increased density within the left base is seen. Pulmonary vessels are diffusely increased. Slight pleural fluid is noted within the right minor fissure. Impression: 1. Findings suspicious for mild CHF. 2. Focal density within left lung base and difficult to exclude an area of pneumonia. 3. Right-sided infusion catheter. Diagnostic code #3
[2020-12-02] MEDS ORDERED: cefTRIAXone 1 GM in Sodium Chloride 0.9% 100 ML IV SCH (12:45)
[2020-12-02] MEDS ORDERED: Calcium Gluconate 10% 1 GM/10 ML SDV IVPUSH ONE (13:54)
[2020-12-02] MEDS ORDERED: 50% Dextrose in Water 50 ML Syringe IVPUSH ONE (13:55)
[2020-12-02] MEDS ORDERED: Insulin Regular, Human 100 Units/ML 3 ML Vial IV ONE (13:55)
[2020-12-02] MEDS ORDERED: Dextrose 10% in Water 500 ML IV SCH (14:00)
== END 2020-12-02 16:25 ==
LOC: JD.ED 10:18
DX: I12.0 Hypertensive chronic kidney disease with stage 5 chronic kidney disease or end stage renal disease (principal); E11.22 Type 2 diabetes mellitus with diabetic chronic kidney disease; N18.6 End stage renal disease; J18.9 Pneumonia, unspecified organism; E87.5 Hyperkalemia; Z99.2 Dependence on renal dialysis; Z79.899 Other long term (current) drug therapy; Z79.4 Long term (current) use of insulin; Z91.018 Allergy to other foods; Z20.822 Contact with and (suspected) exposure to COVID-19; R41.82 Altered mental status, unspecified
CPT/HCPCS: 36415; 70450; 71045; 80053; 81001; 82962; 83605; 84484; 85025; 85610; 85730; 87040; 87086; 87088; 87186; 93005; 96365; 96375; 99285; J0610; J0696; J1815; U0002; 93010; 99283